=== PATIENT | female | born 1960 | race Caucasian/White ===

== ENCOUNTER → 2019-01-26 | Day surgery (SDC) | payer OTHER ==
[~2019-01-26] MED LIST: CELEXA40 MG PO; FENTANYL CITRATE/PF 100MCG/2 ML INJ ONE; GLUCAGON FOR INJ 1 MG VIAL ONE; HYDROCHLOROTHIA25 MG PO; HYOSCYAMINE 0.125 MG TAB ONE; MIDAZOLAM HCL 2 MG/2 ML VIAL ONE; PRESERVISION T1 EACH PO; PRILOSEC10 M1 PO; PROBIOTIC & AC1 EACH PO; PROPOFOL IV EMULSION 10 MG/ML 50 ML VIAL ONE; ZOCOR20 MG PO
--- OUTSIDE RECORDS SUMMARY | 2019-01-26 09:32 | XMS REPORT ---
Author Author [facility] Address Unknown Phone Unavailable Care Team Providers Care Welfare Eligibility Worker Name Role Phone Unavailable Unavailable Payers Payer Name Policy Type Policy Number Effective Date Expiration Date Problems This patient has no known problems. Allergies, Adverse Reactions, Alerts Allergy Name Allergy Type Status Severity Reaction(s) Onset Date Inactive Date Treating Clinician Comments lisinopril DA Active OR 2018-12-30 00:00:00 Medications This patient has no known medications. Results Test Description Test Time Test Comments Text Results Atomic Results Result Comments - [facility] ABDOMEN [facility] 2018-12-30 15:18:00 Name: EZEQUIEL BARBOUR [facility] : 1960 Age/S: 58 / F [address] [facility] Unit #: [id number] Loc: [place] [address] Phys: Emmy Vasquez NP Acct: [id number] Dis Date: Status: REG ER PHONE #: [phone] Exam Date: 12/30/2018 1435 FAX #: [phone] Reason: Abdominal Pain EXAMS: CPT CODE: [id number] [facility]IRTAME ABDOMEN LTD [id number] EXAM: Ultrasound abdomen, limited; INFORMATION: Abdominal pain; FINDINGS: The liver is enlarged and shows diffusely increased parenchymal echogenicity; no focal lesions. The gallbladder is of normal diameter and wall thickness. It contains numerous small stones. No dilatation of intra or extrahepatic bile ducts. The pancreas is unremarkable. The right kidney is of normal size and shape; no hydronephrosis, no stones and no parenchymal abnormalities. The right kidney measures 13.1 x 5.7 x 5.5 cm. No ascites. Imaged portions of the IVC and abdominal aorta are unremarkable. IMPRESSION: 1. Cholecystolithiasis. 2. Fatty liver. at 1518 Reported and signed by: Neto Landry M.D. CC: Emmy Vasquez NP Technologist: BAIRON DE LA TORRE RT(R),RDMS Trngab Date/Time: 12/30/2018 (1517) [email or web address] Orig Print D/T: S: 12/30/2018 (0146) Probe: PAGE 1 Signed Report CBC W/O DIFF 2018-12-30 14:16:00 WHITE BLOOD CELL (test code=WBC) 7.5 K/mm3 4.5-12.5 RED BLOOD CELL (test code=RBC) 4.62 mill/mm3 3.7-5.2 HEMOGLOBIN (test code=HGB) 13.9 gram/dL 11.5-15.5 HEMATOCRIT (test code=HCT) 42.0 % 36.0-46.0 MEAN CELL VOLUME (test code=MCV) 90.9 fL 80-98 MEAN CELL HGB (test code=MCH) 30.1 picogram 27.0-33.0 MEAN CELL HGB CONCETRATION (test code=MCHC) 33.1 gram/dL 33.0-36.0 RED CELL DISTRIBUTION WIDTH (test code=RDW) 13.0 % 11.6-16.2 PLATELET COUNT (test code=PLT) 243 K/mm3 150-450 MEAN PLATELET VOLUME (test code=MPV) 9.8 fL 6.7-11.0 BASIC METABOLIC [id number] 14:13:00* Test Item Value Reference Range Comments SODIUM (test code=NA) 139 mmol/L 136-145 POTASSIUM (test code=K) 3.1 mmol/L 3.5-5.1 CHLORIDE (test code=CL) 105.0 mmol/L 98-107 CARBON DIOXIDE (test code=CO2) 24.0 mmol/L 21-32 ANION GAP (test code=GAP) 13.1 10-20 GLUCOSE (test code=GLU) 95 mg/dL 74-106 BLOOD UREA NITROGEN (test code=BUN) 24 mg/dL 7-18 GLOMERULAR FILTRATION RATE (test code=GFR) > 60 mL/min >=60 Estimated GFR by using Modified MDRD formula.Chronic kidney disease is defined as either kidney damageor GFR <60 mL/min/1.73 m2 for >3 months. CREATININE (test code=CREAT) 0.80 mg/dL 0.55-1.02 Note change in reference range due to change in reagent. BUN/CREATININE RATIO (test code=BUN/CREA) 29.1 10-20 CALCIUM (test code=CA) 9.3 mg/dL 8.5-10.1 HEPATIC FUNCTION [id number] 14:13:00* Test Item Value Reference Range Comments TOTAL PROTEIN (test code=PROT) 8.1 gram/dL 6.4-8.2 ALBUMIN (test code=ALB) 3.9 g/dL 3.4-5.0 GLOBULIN (test code=GLOB) 4.2 gram/dL 2.7-4.2 ALBUMIN/GLOBULIN RATIO (test code=A/G) 0.9 0.75-1.50 BILIRUBIN TOTAL (test code=BILT) 0.50 mg/dL 0.0-1.0 BILIRUBIN DIRECT (test code=BILD) 0.13 mg/dL 0.0-0.20 SGOT/AST (test code=AST) 40 IUnit/L 15-37 SGPT/ALT (test code=ALT) 57 IUnit/L 12-78 ALKALINE PHOSPHATASE TOTAL (test code=ALKP) 80 IUnit/L 45-117 Note change in reference range due to change in reagent. [id number] 14:13:00* Test Item Value Reference Range Comments LIPASE (test code=LIP) 187 U/L 73.0-393.0 HCG SERUM [id number] 14:13:00* Test Item Value Reference Range Comments HCG SERUM QUAL (test code=HCGQL) NEGATIVE NEGATIVE This HCGQL test is NOT applicable for MALE patients.Check with nurse about probable order error.If Tumor Marker Test needed, nurse should order test "HCGTU"(Test #550.29998) [id number] 14:13:00* Test Item Value Reference Range Comments TROPONIN-I (test code=TROPI) <0.015 ng/mL 0-0.045 BASIC METABOLIC [id number] 14:05:00* Test Item Value Reference Range Comments SODIUM (test code=NA) 139 mmol/L 136-145 POTASSIUM (test code=K) 3.1 mmol/L 3.5-5.1 CHLORIDE (test code=CL) 105.0 mmol/L 98-107 CARBON DIOXIDE (test code=CO2) mmol/L 21-32 ANION GAP (test code=GAP) 10-20 GLUCOSE (test code=GLU) mg/dL 74-106 BLOOD UREA NITROGEN (test code=BUN) mg/dL 7-18 GLOMERULAR FILTRATION RATE (test code=GFR) mL/min >=60 CREATININE (test code=CREAT) mg/dL 0.55-1.02 BUN/CREATININE RATIO (test code=BUN/CREA) 10-20 CALCIUM (test code=CA) mg/dL 8.5-10.1 HEPATIC FUNCTION [id number] 14:05:00* Test Item Value Reference Range Comments TOTAL PROTEIN (test code=PROT) gram/dL 6.4-8.2 ALBUMIN (test code=ALB) g/dL 3.4-5.0 GLOBULIN (test code=GLOB) gram/dL 2.7-4.2 ALBUMIN/GLOBULIN RATIO (test code=A/G) 0.75-1.50 BILIRUBIN TOTAL (test code=BILT) mg/dL 0.0-1.0 BILIRUBIN DIRECT (test code=BILD) mg/dL 0.0-0.20 SGOT/AST (test code=AST) IUnit/L 15-37 SGPT/ALT (test code=ALT) IUnit/L 12-78 ALKALINE PHOSPHATASE TOTAL (test code=ALKP) IUnit/L 45-117 [id number] 14:05:00* Test Item Value Reference Range Comments LIPASE (test code=LIP) U/L 73.0-393.0 HCG SERUM [id number] 14:05:00* Test Item Value Reference Range Comments HCG SERUM QUAL (test code=HCGQL) NEGATIVE NEGATIVE This HCGQL test is NOT applicable for MALE patients.Check with nurse about probable order error.If Tumor Marker Test needed, nurse should order test "HCGTU"(Test #550.83485) [id number] 14:05:00* Test Item Value Reference Range Comments TROPONIN-I (test code=TROPI) ng/mL 0-0.045 BASIC METABOLIC [id number] 14:03:00* Test Item Value Reference Range Comments SODIUM (test code=NA) mmol/L 136-145 POTASSIUM (test code=K) mmol/L 3.5-5.1 CHLORIDE (test code=CL) mmol/L 98-107 CARBON DIOXIDE (test code=CO2) mmol/L 21-32 ANION GAP (test code=GAP) 10-20 GLUCOSE (test code=GLU) mg/dL 74-106 BLOOD UREA NITROGEN (test code=BUN) mg/dL 7-18 GLOMERULAR FILTRATION RATE (test code=GFR) mL/min >=60 CREATININE (test code=CREAT) mg/dL 0.55-1.02 BUN/CREATININE RATIO (test code=BUN/CREA) 10-20 CALCIUM (test code=CA) mg/dL 8.5-10.1 HEPATIC FUNCTION [id number] 14:03:00* Test Item Value Reference Range Comments TOTAL PROTEIN (test code=PROT) gram/dL 6.4-8.2 ALBUMIN (test code=ALB) g/dL 3.4-5.0 GLOBULIN (test code=GLOB) gram/dL 2.7-4.2 ALBUMIN/GLOBULIN RATIO (test code=A/G) 0.75-1.50 BILIRUBIN TOTAL (test code=BILT) mg/dL 0.0-1.0 BILIRUBIN DIRECT (test code=BILD) mg/dL 0.0-0.20 SGOT/AST (test code=AST) IUnit/L 15-37 SGPT/ALT (test code=ALT) IUnit/L 12-78 ALKALINE PHOSPHATASE TOTAL (test code=ALKP) IUnit/L 45-117 [id number] 14:03:00* Test Item Value Reference Range Comments LIPASE (test code=LIP) U/L 73.0-393.0 HCG SERUM [id number] 14:03:00* Test Item Value Reference Range Comments HCG SERUM QUAL (test code=HCGQL) NEGATIVE NEGATIVE This HCGQL test is NOT applicable for MALE patients.Check with nurse about probable order error.If Tumor Marker Test needed, nurse should order test "HCGTU"(Test #550.48936) [id number] 14:03:00* Test Item Value Reference Range Comments TROPONIN-I (test code=TROPI) ng/mL 0-0.045
--- OUTSIDE RECORDS SUMMARY | 2019-01-26 09:32 | XMS REPORT | Encounter Summary ---
Author Organization Unknown Address [address] [place] [address] Phone [phone] Care Team Providers Care Plaster Applicator Name Role Phone Dr. Camron Calvillo 3 [phone] [facility] 107 [phone] Hans Eaton MD 124 [phone] Reason for Visit lab follow-up Instructions 1. Body mass index 30+ - obesity body mass index: care instructions learning about healthy weight 2. Morbid obesity learning about healthy weight 3. Cholelithiasis without obstruction general surgery referral 4. Hypercalcemia 5. Essential hypertension 6. Abdominal pain Discussion Note will refer to gen surgeon olman/re check ca next ov/rtc 1 month bp f/u Plan of Care Patient Instructions attend er if>pain and surgical consult not forthcoming Reminders Provider Appointments Return to Office on or around 01/29/2019 Tao Pettit MD Lab None recorded. Referral General Surgery Referral 12/29/2018 Procedures None recorded. Surgeries None recorded. Imaging None recorded. Medications Name Start Date acetaminophen 300 mg-codeine 60 mg tablet Take 0.5 tablets as needed by oral route. calcipotriene 0.005 % topical cream Apply 1 application every day by topical route. citalopram 40 mg tablet TAKE 1 TABLET DAILY diclofenac 1 % topical gel Apply 1 g every day by topical route as needed. Flector 1.3 % transdermal 12 hour patch Apply 1 patch every day by transderm. route as needed. hydrochlorothiazide 25 mg tablet TAKE 1 TABLET DAILY potassium chloride ER 20 mEq tablet,extended release(part/cryst) Take 1 tablet every day by oral route. PreserVision AREDS QD simvastatin 10 mg tablet TAKE 1 TABLET DAILY Medications Administered None recorded. Vitals Height Weight BMI Blood Pressure 5 ft 4 in 212 lbs 36.4 kg/m2 (1) 142/92 mm[Hg] (2) 141/96 mm[Hg] Lab Results Date Name Specimen Result Interpretation Description Value Range Status Address 12/26/2018 CBC W/ Auto Diff Wbc 6.93 x10*3/L 3.98-10.04 x10*3/L Final [facility] [address] [facility] Rbc 4.53 10*12/L 3.93-5.22 10*12/L Final [facility] [address] [facility] Hemoglobin 13.70 g/dL 11.20-15.70 g/dL Final [facility]: [address] [facility] Hematocrit 41.9 % 34.1-44.9 % Final [facility]: [address] [facility] Mcv 92.5 fL 80.0-100.0 fL Final [facility]: [address] [facility] Mch 30.2 pg 25.6-32.2 pg Final [facility]: [address] [facility] Mchc 32.7 g/dL 32.2-35.5 g/dL Final [facility]: [address] [facility] RDW-SD 44.9 fL 36.4-46.3 fL Final [facility]: [address] [facility] Platelet Count 238.0 k/uL 182.0-369.0 k/uL Final [facility]: [address] [facility] Mpv 11.1 fL 7.5-11.5 fL Final [facility]: [address] [facility] Neut% 42.8 % 34.0-71.1 % Final [facility] Laboratory: [address] [place] [address] Lymph% 47.8 % 19.3-51.7 % Final [facility]: [address] [facility] Mon% 6.2 % 4.7-12.5 % Final [facility]: [address] [facility] Eos% 2.6 % 0.7-5.8 % Final [facility]: [address] [facility] Baso% 0.6 % 0.1-1.2 % Final [facility] Laboratory: [address] [place] [address] Neut# 3.0 x10*3/L 1.6-6.1 x10*3/L Final [facility] Laboratory: [address] [place] [address] [place] Lymph# 3.3 x10*3/L 1.2-3.7 x10*3/L Final [facility] Laboratory: [address] [facility] [place] Mon# 0.4 x10*3/L 0.2-0.9 x10*3/L Final [facility] Laboratory: [address] [place] [address], [place] Eos# 0.18 x10*3/L 0.04-0.36 x10*3/L Final [facility] Laboratory: [address] [place] [address], [place] Baso# 0.04 x10*3/L 0.01-0.08 x10*3/L Final [facility] Laboratory: [address] 12/26/2018 PTH (Parathyroid Hormone), Intact, Serum or Plasma Normal Parathyroid Hormone, Intact 56 pg/mL 14-64 pg/mL Final [facility] Laboratory: [address] Allergies Code Code System Name Reaction Severity Status Onset 85141 RxNorm Lisinopril Photosensitivity Active Problems Name Status Onset Date Source Hyperlipidemia Active 08/18/2018 Depressive Disorder Active 08/18/2018 Hypertensive Disorder Active 08/18/2018 Psoriasis Active 08/18/2018 Procedures Date Name Performed by 05/03/2017 Lumbar Spinal Fusion Information not available 05/03/1997 Tubal Ligation Information not available 05/03/1986 Repair of Flexor Tendon of Hand Information not available Colonoscopy with Biopsy Information not available Surgical Procedure on Cervical Spine Information not available 12/26/2018 US, Abdomen, Complete [facility] [address] [place] [address] (Work Place) Vaccine List None recorded. Social History Tobacco Smoking Status Former Smoker (1/2 PPD) Past Encounters 12/29/2018 Body Mass Index 30+ - Obesity; Morbid Obesity; Cholelithiasis without Obstruction; Hypercalcemia; Essential Hypertension; Abdominal Pain Tao Pettit MD: [address] [place] [address], Ph. 12/26/2018 Hypertensive Disorder; Body Mass Index 30+ - Obesity; Abdominal Pain; Gastroesophageal Reflux Disease; Hypercalcemia; Essential Hypertension; Depressive Disorder; Chronic Low Back Pain Tao Pettit MD: [address] [place] [address], Ph. History of Present Illness Note:f/u epigastric abdominal pain,persistant with nausea without vomiting<div> us abdo -cholelithiasis/fatty infiltration or hepatocellular disease</div> <div> lab-normal cbc/parahormone</div><div>
</div> Review of Systems:ROS as noted in the HPI Review of Systems None recorded. Physical Exam Brief Abdominal Pain Exam Reported By: Patient Abdomen: Inspection and Palpation: ; epigastric tenderness/murphys positive
--- OUTSIDE RECORDS SUMMARY | 2019-01-26 09:32 | XMS REPORT | Encounter Summary ---
Author Organization Unknown Address [address] [place] [address] Phone [phone] Care Team Providers Care Agronomy Professor Name Role Phone Dr. Camron Calvillo 3 [phone] [facility] 107 [phone] Hans Eaton MD 124 [phone] Reason for Visit Hypertensive disorder; other - see typed reason Instructions 1. Hypertensive disorder 2. Body mass index 30+ - obesity body mass index: care instructions learning about healthy weight 3. Abdominal pain CBC w/ auto diff US, abdomen, complete 4. Gastroesophageal reflux disease 5. Hypercalcemia PTH (parathyroid hormone), intact, serum or plasma 6. Essential hypertension 7. Depressive disorder 8. Chronic low back pain Discussion Note await us abdo may need gi consult Plan of Care Patient Instructions continue all meds /> dose and take omeprazole daily Reminders Provider Appointments None recorded. Lab CBC W/ Auto Diff 12/26/2018 [facility] PTH (Parathyroid Hormone), Intact, Serum or Plasma 12/26/2018 [facility] Referral None recorded. Procedures None recorded. Surgeries None recorded. Imaging US, Abdomen, Complete 12/26/2018 Medications Name Start Date acetaminophen 300 mg-codeine [...] 4 in 212 lbs 36.4 kg/m2 (1) 140/92 mm[Hg] (2) 132/87 mm[Hg] Lab Results None recorded. Allergies Code Code System Name Reaction Severity Status Onset 05737 RxNorm Lisinopril Photosensitivity Active Problems Name Status [...] Information not available 12/26/2018 US, Abdomen, Complete Information not available Vaccine List None recorded. Social History Tobacco Smoking Status Former Smoker (1/2 PPD) Past Encounters 12/26/2018 Hypertensive Disorder; Body Mass Index 30+ - Obesity; Abdominal Pain; Gastroesophageal Reflux Disease; Hypercalcemia; Essential Hypertension; Depressive Disorder; Chronic Low Back Pain Tao Pettit MD: [address] [place] [address], Ph. History of Present Illness Note:f/u htn,compliant with meds/hypercalcemia -repeat ca 10.2<div>3 week h/o stomach queasiness/epigastric pain relieved otc omeprazole /food</div><div>long h/o gerd,normal colonoscopy 8 yrs ago -advised 10 yr f/u</div><div>trial spinal stimulator scheduled next week</div> Review of Systems:ROS as noted in the HPI Review of Systems None recorded. Physical Exam Brief Abdominal Pain Exam Reported By: Patient Constitutional: General Appearance: well-developed, well-nourished, healthy-appearing, alert, oriented, NAD, mucous membranes moist Cardiovascular: Heart Auscultation: S1 present, S2 present, no murmurs, no click Lungs: Lungs: clear to auscultation bilaterally, no wheezing, no crackles Abdomen: Inspection and Palpation: soft, bowel sounds 4 quadrants, no tenderness, non-distended; epigastric tenderness +/murphys neg
--- OUTSIDE RECORDS SUMMARY | 2019-01-26 09:32 | XMS REPORT | Encounter Summary ---
Author Organization Unknown Address [address] [place] [address] Phone [phone] Care Team Providers Care Sleep Lab Technologist Name Role Phone Dr. Camron Calvillo 3 [phone] [facility] 107 [phone] Hans Eaton MD 124 [phone] Reason for Visit other - see typed reason Instructions 1. Arthritis of right sacroiliac joint pain management referral 2. Body mass index 30+ - obesity body mass index: care instructions learning about healthy weight 3. Screening for disorder hepatitis C virus RNA, quant, PCR, serum or plasma 4. Screening for malignant neoplasm of cervix gynecology referral Discussion Note: None recorded. Plan of Care Reminders Provider Appointments Est Patient 11/17/2018 1:00PM Tao Pettit MD Lab Hepatitis C Virus RNA, Quant, PCR, Serum or Plasma 09/05/[address] [facility] Laboratory Referral Gynecology Referral 09/05/2018 Andrew Alfaro MD Pain Management Referral 09/05/2018 Hans Eaton MD Procedures None recorded. Surgeries None recorded. Imaging None recorded. Medications Name Start Date acetaminophen 300 mg-codeine 60 mg tablet TID PRN calcipotriene 0.005 % topical cream QD citalopram 40 mg tablet Take 1 tablet every day by oral route. diclofenac 1 % topical gel PRN Flector 1.3 % transdermal 12 hour patch PRN hydrochlorothiazide 25 mg tablet Take 1 tablet every day by oral route. PreserVision AREDS QD simvastatin 10 mg tablet Take 1 tablet every day by oral route. Medications Administered None recorded. Vitals Height Weight BMI Blood Pressure 5 ft 4 in 211 lbs 36.2 kg/m2 (1) 150/90 mm[Hg] (2) 138/82 mm[Hg] Lab Results Date Name Specimen Result Interpretation Description Value Range Status Address 08/18/2018 CBC W/ Auto Diff Wbc 7.10 x10*3/L 3.98-10.04 x10*3/L Final [facility] Laboratory: [address] [place] Rbc 4.77 10*12/L 3.93-5.22 10*12/L Final [facility]: [address] [place] Hemoglobin 14.60 g/dL 11.20-15.70 g/dL Final [facility]: [address] [place] Hematocrit 44.5 % 34.1-44.9 % Final [facility]: [address] [place] Mcv 93.3 fL 80.0-100.[address] [facility]: [address] [facility] Mch 30.6 pg 25.6-32.[address] [facility]: [address] [place] Mchc 32.8 g/dL 32.2-35.5 g/dL Final [facility]: [address] [place] RDW-SD 45.5 fL 36.4-46.[address] [facility]: [address] [facility] Platelet Count 273.0 k/uL 182.0-369.0 k/uL Final [facility]: [address] [facility] Mpv 10.8 fL 7.5-11.[address] [facility]: [address] [place] Neut% 43.4 % 34.0-71.1 % Final [facility]: [address] [place] Lymph% 49.0 % 19.3-51.7 % Final [facility]: [address] [facility] Low Mon% 4.4 % 4.7-12.5 % Final [facility]: [address] [facility] Eos% 2.5 % 0.7-5.8 % Final [facility]: [address] [facility] Baso% 0.7 % 0.1-1.2 % Final [facility]: [address] [place] Neut# 3.1 x10*3/L 1.6-6.1 x10*3/L Final [facility]: [address] [facility] Lymph# 3.5 x10*3/L 1.2-3.7 x10*3/L Final [facility]: [address] [place] Mon# 0.3 x10*3/L 0.2-0.9 x10*3/L Final [facility]: [address] [place] Eos# 0.18 x10*3/L 0.04-0.36 x10*3/L Final [facility]: [address] [place] Baso# 0.05 x10*3/L 0.01-0.08 x10*3/L Final [facility]: [address] [facility] 08/18/2018 CMP, Serum or Plasma Alt 23 U/L 0-55 U/L Final [facility]: [address] Ast 21 U/L 5-34 U/L Final [facility] Laboratory: [address] Bun 16.4 mg/dL 9.8-20.1 mg/dL Final [facility]: [address] Alk Phos 82 unit/L 40-150 unit/L Final [facility]: [address] Glucose 87 mg/dL 70-99 mg/dL Final [facility]: [address] Albumin 4.5 g/dL 3.5-5.0 g/dL Final [facility]: [address] Creatinine 0.84 mg/dL 0.57-1.11 mg/dL Final [facility]: [address] eGFR Non- >60 mL/min/1.73m2 Final [facility]: [address] Total Bilirubin 0.3 mg/dL 0.2-1.2 mg/dL Final [facility]: [address] eGFR - >60 mL/min/1.73m2 Final [facility]: [address] Sodium 141 mEq/L 136-145 mEq/L Final [facility]: [address] Potassium 4.0 mEq/L 3.5-5.1 mEq/L Final [facility]: [address] Chloride 102 mmol/L 98-107 mmol/L Final [facility]: [address] Total Protein 7.8 g/dL 6.4-8.3 g/dL Final [facility]: [address] High Calcium 10.7 mg/dL 8.6-10.4 mg/dL Final [facility]: [address] Co2 26.5 mmol/L 22.0-29.0 mmol/L Final [facility]: [address] Anion Gap [address] [facility]: [address] [place], [place] 08/18/2018 Lipid Panel, Serum Hdl 51 mg/dL 40-60 mg/dL Final [facility] Laboratory: [address] Triglyceride 134 mg/dL 0-149 mg/dL Final [facility]: [address] VLDL Calc. 27 mg/dL Final [facility]: [address] cholesterol/HDL Ratio 3.9 mg/dL Final [facility]: [address] non-HDL Cholesterol Calc. 146 mg/dL 0-160 mg/dL Final [facility]: [address] Cholesterol 197 mg/dL 0-199 mg/dL Final [facility]: [address] LDL Calc. 119 mg/dL 0-130 mg/dL Final [facility] Laboratory: [address] [place] [address], [place] 08/18/2018 Vitamin D, 25-Hydroxy, Total, Serum Vitamin D 25OH 35.8 NG/mL 30.0-96.0 NG/mL Final [facility] Laboratory: [address] Allergies Code Code System Name Reaction Severity Status Onset 17535 RxNorm Lisinopril Photosensitivity Active Problems Name Status Onset Date Source Hyperlipidemia Active 08/18/2018 Depressive Disorder Active 08/18/2018 Hypertensive Disorder Active 08/18/2018 Psoriasis Active 08/18/2018 Procedures Date Name Performed by 05/03/2017 Lumbar Spinal Fusion Information not available 05/03/2011 Colonoscopy with Biopsy Information not available 05/03/1997 Tubal Ligation Information not available 05/03/1986 Repair of Flexor Tendon of Hand Information not available Surgical Procedure on Cervical Spine Information not available Vaccine List None recorded. Social History Smoking Status Former Smoker (1/2 PPD) Past Encounters 09/05/2018 Arthritis of Right Sacroiliac Joint; Body Mass Index 30+ - Obesity; Screening for Disorder; Screening for Malignant Neoplasm of Cervix Camron Esperanza Arias MD: [address] [place] [address], Ph. 08/18/2018 Body Mass Index 30+ - Obesity; Depressive Disorder; Hyperlipidemia; Hypertensive Disorder; Alcohol Consumption Screening; Immunization Refused; Vitamin D Deficiency Tao Pettit MD: [address] [place] [address], Ph. History of Present Illness Note:Complaining of chronic pain in the R sacroiliac joint since 20 years ago. S/p surgery (fusion) x2. Pt used to see a production painter until 1 month ago in [place]. However, she moved to [place] and needs a new referral. She would like to see the same specialist. Pain is constant, intensity: 6-10. Located in the R side of the lumbo-sacral area. No radiation. Sharp type. Denies numbness, tingling or weakness in the R leg. Review of Systems Comprehensive General Adult ROS Reported By: Patient Cardiovascular: Cardiovascular: no chest pain Respiratory: Respiratory: no cough, no wheezing, no shortness of breath Gastrointestinal: Gastrointestinal: no abdominal pain Musculoskeletal: Musculoskeletal: arthralgias/joint pain, back pain Neurologic: Neurologic: no loss of consciousness, no headaches Psychiatric: Psych: no depression, no alcohol abuse, no anxiety, no suicidal thoughts Physical Exam General Adult Exam (male) Reported By: Patient Constitutional: General Appearance: healthy-appearing, obese. Level of Distress: NAD Eyes: Lids and Conjunctivae: non-injected, no discharge ENMT: Ears: TMs clear. Nose: no sinus tenderness. Lips, Teeth, and Gums: no mouth or lip ulcers. Oropharynx: moist mucous membranes Neck: Neck: supple, trachea midline Lungs: Auscultation: breath sounds normal Cardiovascular: Heart Auscultation: RRR, normal S1, normal S2, no murmurs Neurologic: Gait and Station: ; antalgic gait. Sensation: grossly intact. Reflexes: DTRs 2+ bilaterally throughout Skin: Inspection and palpation: no rash, no lesions Back: Thoracolumbar Appearance: ; tenderness with palpation at the level of the R sacroiliac joint. Positive straight leg raising test in the R side. Decreased ROM because of the pain
--- OUTSIDE RECORDS SUMMARY | 2019-01-26 09:32 | XMS REPORT | Encounter Summary ---
Author Organization Unknown Address [address] [place] [address] Phone [phone] Care Team Providers Care Business Development Consultant Name Role Phone Dr. Camron Calvillo 3 [phone] [facility] 107 [phone] Hans Eaton MD 124 [phone] Reason for Visit lab only visit Instructions 1. Hypercalcemia calcium, serum or plasma Discussion Note: None recorded. Patient educational handouts: No information available. Plan of Care Reminders Provider Appointments Est Patient 12/12/2018 1:00PM Tao Ptetit MD Lab Calcium, Serum or Plasma 11/21/2018 [facility] Laboratory Referral None recorded. Procedures None [...] TABLET DAILY Medications Administered None recorded. Vitals None recorded. Lab Results Date Name Specimen Result Interpretation Description Value Range Status Address 11/14/2018 CMP, Serum or Plasma Alt 41 U/L 0-55 U/L Final [facility] Laboratory: [address] Ast 23 U/L 5-34 U/L Final [facility] Laboratory: [address] [place] [address], [place] Bun 27.8 mg/dL 9.8-25.0 mg/dL Final [facility] Laboratory: [address] Alk Phos 78 unit/L 40-150 unit/L Final [facility] Laboratory: [address] Glucose 90 mg/dL 70-99 mg/dL Final [facility] [facility] 4.[facility] g/dL 3.4-5.1 g/dL Final [facility] Laboratory: [address] Creatinine 0.86 mg/dL 0.57-1.11 mg/dL Final [facility] Laboratory: [address] eGFR Non- >60 mL/min/1.73m2 Final [facility] Laboratory: [address] Total Bilirubin 0.5 mg/dL 0.2-1.2 mg/dL Final [facility] Laboratory: [address] eGFR - >60 mL/min/1.73m2 Final [facility]: [address] Sodium 140 mEq/L 135-145 mEq/L Final [facility] Laboratory: [address] Potassium 3.7 mEq/L 3.5-5.1 mEq/L Final [facility] Laboratory: [address] Chloride 106 mmol/L 98-110 mmol/L Final [facility] Laboratory: [address] Total Protein 7.8 g/dL 6.1-8.2 g/dL Final [facility] Laboratory: [address] High Calcium 10.7 mg/dL 8.6-10.4 mg/dL Final [facility] Laboratory: [address] Co2 24.8 mmol/L 20.0-32.0 mmol/L Final [facility] Laboratory: [address] Anion Gap 9 calc Final [facility] [address] [facility] Lipid Panel, Serum Low Hdl 46 mg/dL Final [facility] Laboratory: [address] High Triglyceride 224 mg/dL 0-150 mg/dL Final [facility] Laboratory: [address] VLDL (Calculated) 45 mg/dL Final [facility] Laboratory: [address] cholesterol/HDL Ratio 4.6 mg/dL Final [facility] Laboratory: [address] High non-HDL Cholesterol (Calculated) 165 mg/dL 0-160 mg/dL Final [facility] Laboratory: [address] High Cholesterol 211 mg/dL 0-200 mg/dL Final [facility] Laboratory: [address] LDL (Calculated) 120 mg/dL 0-130 mg/dL Final [facility]: [address] Allergies Code Code System Name Reaction Severity Status Onset 09795 RxNorm Lisinopril Photosensitivity Active Problems Name Status [...] Status Former Smoker (1/2 PPD) Past Encounters 11/21/2018 Hypercalcemia Tao Pettit MD: [address] [place] [address], Ph. 11/14/2018 Body Mass Index 30+ - Obesity; Obesity; Depressive Disorder; Hypertensive Disorder; Hyperlipidemia Tao Pettit MD: [address] [place] [address], Ph. History of Present Illness None recorded. Review of Systems None recorded. Physical Exam None recorded.
--- OUTSIDE RECORDS SUMMARY | 2019-01-26 09:32 | XMS REPORT | Encounter Summary ---
Author Organization Unknown Address [address] [place] [address] Phone [phone] Care Team Providers Care Associate Professor Physician Name Role Phone Dr. Camron Calvillo 3 [phone] [facility] 107 [phone] Hans Eaton MD 124 [phone] Reason for Visit Hypertensive disorder; Hyperlipidemia; Depressive disorder Instructions 1. Body mass index 30+ - obesity body mass index: care instructions learning about healthy weight 2. Obesity 3. Depressive disorder citalopram 40 mg tablet 4. Hypertensive disorder hydrochlorothiazide 25 mg tablet potassium chloride ER 20 mEq tablet,extended release(part/cryst) 5. Hyperlipidemia simvastatin 10 mg tablet high cholesterol: care instructions lipid panel, serum CMP, serum or plasma Discussion Note await lab h/o >ca/will > meds if >bp withself monitoring next ov Plan of Care Patient Instructions continue meds,monitor bp with record Reminders Provider Appointments Return to Office on or around 12/15/2018 Tao Pettit MD Lab Lipid Panel, Serum 11/14/2018 [facility] Laboratory CMP, Serum or Plasma 11/14/2018 [facility] Laboratory Referral None recorded. Procedures None recorded. [...] BMI Blood Pressure 5 ft 4 in 210.6 lbs 36.1 kg/m2 (1) 148/92 mm[Hg] (2) 138/88 mm[Hg] Lab Results None recorded. Allergies Code Code System Name Reaction Severity Status Onset 70313 RxNorm Lisinopril Photosensitivity Active Problems Name Status [...] Status Former Smoker (1/2 PPD) Past Encounters 11/14/2018 Body Mass Index 30+ - Obesity; Obesity; Depressive Disorder; Hypertensive Disorder; Hyperlipidemia Tao Pettit MD: [address] [place] [address], Ph. History of Present Illness Note:f/u chronic conditions,compliant with meds not exercise due to chronic back pain -meds as per pain management<div>initially > bp at to days ov-occ htn with self monitoring</div><div>no feelins of depression /suicidal /homicidal thoughts</div> Review of Systems:ROS as noted in the HPI Review of Systems None recorded. Physical Exam Cardiology Exam Reported By: Patient Constitutional: General Appearance: well-developed, appears stated age, obese. Level of Distress: comfortable Psychiatric: Mental Status: alert, normal affect. Orientation: oriented to time, place, and person. Insight: good judgment Eyes: Lids and Conjunctivae: non-injected, anicteric, no discharge, no pallor, no arcus senilis, no xanthelasma. Pupils: PERRLA Neck: Neck: supple, trachea midline, no masses, FROM. Carotid Arteries: bilateral normal upstroke, no bruits, no thrills. Cervical Lymph Nodes: non tender, not enlarged. Thyroid: not enlarged, non tender, no nodules Lungs: Respiratory Effort: unlabored. Chest Exam: normal curvature, no thoracic deformity, no chest wall tenderness. Percussion: resonant. Auscultation: clear, no wheezing, no rales, no rhonchi Cardiovascular: Precordial Exam: non displaced focal PMI, no heaves, no precordial thrills. Rate And Rhythm: regular. Heart Sounds: normal S1, physiologically split S2, no rub, no gallop, no click. Systolic Murmur: not heard. Diastolic Murmur: not heard. Extremities: no cyanosis, no edema, no peripheral signs of emboli Skin: Inspection and Palpation: warm and dry. Nails: no clubbing
[2019-01-26 14:35] VITALS: BP 120/73
[2019-01-26 15:36] LABS: C DIFFICILE TOXIN A&B AMP PROB NEGATIVE (NEGATIVE); WBC,FECAL (FECAL LACTOFERRIN) NEGATIVE (NEGATIVE)
--- NOTE | 2019-01-26 20:32 | Operative Report ---
DATE OF PROCEDURE: 01/26/2019 SURGEON: Chuck Bowers MD PROCEDURES: EGD with biopsies and colonoscopy with polypectomy and biopsies. INDICATIONS FOR EGD: Upper abdominal pain, heartburn, nausea. INDICATIONS FOR COLONOSCOPY: Colorectal cancer screening, history of diarrhea. MEDICATIONS: The patient was done under MAC, please see anesthesiologist's note. PROCEDURE IN DETAIL: With the patient in left lateral decubitus position, a flexible fiberoptic Olympus gastroscope was introduced into the esophagus under direct visualization without any difficulty. There was some patchy erythema noted in distal esophagus. Minute tongue of velvety red mucosa was noted to extend proximally from the GE junction and biopsies were obtained to rule out Souza. The scope was then advanced with ease into the stomach, mucosa overlying the antrum and the body revealed some patchy erythema and [id number] edema, and biopsies were obtained and sent to stain for H. pylori. Pylorus was of normal contour and shape, it was intubated with ease and the scope was advanced all the way to the second portion of the duodenum. Biopsies were obtained from the second portion and the duodenal bulb to rule out sprue. The scope was then withdrawn back into the stomach and retroflexed and mucosa overlying the fundus and the cardia appeared to be within normal limits. The scope was then straightened out, it was subsequently withdrawn, and the patient tolerated the procedure well. IMPRESSION: 1. Mild distal esophagitis. 2. Rule out Souza esophagus. 3. Gastritis, biopsied, biopsies sent to stain for Helicobacter pylori. 4. Rule out sprue. PLAN: Follow up histology. Increase omeprazole to 40 mg 1 p.o. before meals b.i.d. The patient was then turned around and after adequate lubrication of the anal canal, a flexible fiberoptic Olympus colonoscope was inserted into the rectum with ease and advanced all the way to the cecum. Mucosa overlying the cecum appeared to be within normal limits. A minute polyp was removed per the cold biopsy forceps from the proximal ascending colon. The rest of the ascending and transverse grossly appeared to be within normal limits. Mild patchy and inflammatory changes were noted in the left colon and the rectum, and random biopsies were obtained. Five polyps were removed per hot biopsy forceps from the rectum. The scope was then retroflexed into the distal rectum and small internal hemorrhoids were noted, none of which was actively bleeding. The scope was then straightened out and it was subsequently withdrawn after securing an adequate stool specimen that was sent for the appropriate stool studies. The patient tolerated the procedure well. IMPRESSION: 1. Minute polyp, proximal ascending colon removed per cold biopsy forceps. 2. Mild patchy left-sided colitis. 3. Rectal polyps x5, hot biopsied. 4. Proctitis, mild, biopsies obtained. 5. Internal hemorrhoids, none actively bleeding. PLAN: Follow up histology. Follow up stool studies. Initiate Bentyl to 20 mg 1 p.o. t.i.d. and Visbiome 1 p.o. b.i.d. Chuck Bowers MD [facility] [place] /[id number] cc: Camron Arias MD
== END | disposition home or self-care (01) ==
LOC: OR 09:29
PROVIDERS: ATTEND Internal Medicine Gastroenterology
DX: K29.50 Unspecified chronic gastritis without bleeding (principal); D12.2 Benign neoplasm of ascending colon; K62.1 Rectal polyp; K51.50 Left sided colitis without complications; K21.0 Gastro-esophageal reflux disease with esophagitis; K22.8 Other specified diseases of esophagus; K62.89 Other specified diseases of anus and rectum; K64.8 Other hemorrhoids; I10 Essential (primary) hypertension; Z88.8 Allergy status to other drugs, medicaments and biological substances; Z01.810 Encounter for preprocedural cardiovascular examination; Z80.0 Family history of malignant neoplasm of digestive organs
CPT/HCPCS: 43239; 45380; 45384; 83630; 83993; 87045; 87177; 87328; 87493; 93005; J1610; J2250; J2704; J3010; 45378

== ENCOUNTER 2019-09-11 20:02 | Emergency (ER) | payer OTHER ==
[~2019-09-11] VITALS: Ht 157.5 cm; Wt 90.7 kg
[~2019-09-11 20:02] MED LIST changes: -FENTANYL CITRATE/PF 100MCG/2 ML INJ ONE; -GLUCAGON FOR INJ 1 MG VIAL ONE; -HYOSCYAMINE 0.125 MG TAB ONE; -MIDAZOLAM HCL 2 MG/2 ML VIAL ONE; -PROPOFOL IV EMULSION 10 MG/ML 50 ML VIAL ONE
--- OUTSIDE RECORDS SUMMARY | 2019-09-11 20:06 | XMS REPORT | Encounter Summary ---
Author Organization Unknown Address [address] [place] [address] Phone [phone] Care Team Providers Care Final Assembler Name Role Phone Dr. Camron Calvillo 3 [phone] [facility] 107 [phone] Hans Eaton MD 124 [phone] Reason for Visit hyperlipidemia; hypertension; depression Instructions 1. Body mass index 30+ - obesity learning about healthy weight 2. Depressive disorder citalopram 40 mg tablet citalopram 40 mg tablet 3. Hyperlipidemia Zocor 10 mg tablet lipid panel, serum CMP, serum or plasma CBC w/ auto diff Zocor 10 mg tablet 4. Hypertensive disorder hydrochlorothiazide 25 mg tablet hydrochlorothiazide 25 mg tablet 5. Alcohol consumption screening learning about alcohol use disorder 6. Immunization refused 7. Vitamin D deficiency vitamin D, 25-hydroxy, total, serum Discussion Note: None recorded. Plan of Care Patient Instructions continue meds/exercise/<wgt Reminders Provider Appointments None recorded. Lab Lipid Panel, Serum 08/18/2018 [facility] - Laboratory CMP, Serum or Plasma 08/18/2018 [facility] Med ical - Laboratory CBC W/ Auto Diff 08/18/2018 [facility] - Laboratory Vitamin D, 25-Hydroxy, Total, Serum 08/18/2018 [facility] - Laboratory Referral None recorded. Procedures None recorded. Surgeries None recorded. Imaging None recorded. Medications Name Start Date acetaminophen 300 mg-codeine 30 mg tablet acetaminophen 300 mg-codeine 60 mg table t Take 0.5 tablets as needed by oral route. calcipotriene 0.005 % topical cream Apply 1 application every day by topical route. cephalexin 500 mg capsule citalopram 40 mg tablet TAKE 1 TABLET DAILY diclofenac 1 % topical gel Apply 1 g every day by topical route as needed. dicyclomine 20 mg tablet Flector 1.3 % transdermal 12 hour patch Apply 1 patch every day by transderm. route as needed. hydrochlorothiazide 25 mg tablet TAKE 1 TABLET DAILY hydrocodone 5 mg-acetaminophen 325 mg tablet omeprazole 40 mg capsule,delayed release potassium chloride ER 20 mEq tablet,exte nded release(part/cryst) Take 1 tablet every day by oral route. PreserVision AREDS QD simvastatin 10 mg tablet TAKE 1 TABLET DAILY Medications Administered None recorded. Vitals Height Weight BMI Blood Pressure 5 ft 4 in 210 lbs 36 kg/m2 130/70 mm[Hg] Results Lab Results Date Name Specimen Result Interpretation Description Value Range Status Address 12/26/2018 CBC W/ Auto Diff Wbc 6.93 x10*3/L 3.9 8-10.04 x10*3/L Final [facility] - Laboratory: [address] Rbc 4.53 10*12/L 3.93-5.22 10*12/L Final [facility] - Laboratory: [address] Hemoglobin 13.70 g/dL 11.20-15.70 g/ dL Final [facility] - Laboratory: [address] Hematocrit 41.9 % 34.1-44.9 % Final [facility] - Laboratory: [address] Mcv 92.5 fL 80.0-100.0 fL Final Vi [facility] Medical - Laboratory: [address] Mch 30.2 pg 25.6-32.2 pg Final [facility] Medical - Laboratory: [address] Mchc 32.7 g/dL 32.2-35.5 g/dL Final [facility] Medical - Laboratory: [address] RDW-SD 44.9 fL 36.4-46.3 fL Final V [facility] Medical - Laboratory: [address] Platelet Count 238.0 k/uL 182.0-369. 0 k/uL Final [facility] Medical - Laboratory: [address] Mpv 11.1 fL 7.5-11.5 fL Final [facility] Medical - Laboratory: [address] Neut% 42.8 % 34.0-71.1 % Final [facility] Medical - Laboratory: [address] Lymph% 47.8 % 19.3-51.7 % Final [facility] Medical - Laboratory: [address], [place] Mon% 6.2 % 4.7-12.5 % Final [facility] Medical - Laboratory: [address], [place] Eos% 2.6 % 0.7-5.8 % Final [facility] Medical - Laboratory: [address], [place] Baso% 0.6 % 0.1-1.2 % Final [facility] Medical - Laboratory: [address], [place] Neut# 3.0 x10*3/L 1.6-6.1 x10*3/L Final [facility] Medical - Laboratory: [address], [place] Lymph# 3.3 x10*3/L 1.2-3.7 x10*3/L Final [facility] Medical - Laboratory: [address], [place] Mon# 0.4 x10*3/L 0.2-0.9 x10*3/L F aldersonl [facility] Medical - Laboratory: [address], [place] Eos# 0.18 x10*3/L 0.04-0.36 x10*3/ L Final [facility] Medical - Laboratory: [address], [place] Baso# 0.04 x10*3/L 0.01-0.08 x10*3/ L Final [facility] - Laboratory: [address], [place] 12/26/2018 PTH (Parathyroid Hormone), Intact, Serum or Plasma Normal Parathyroid Hormone, Intact 56 pg/mL 14-64 pg/mL Final [facility] Medical - Laboratory: [address], [place] 11/21/2018 Calcium, Serum or Plasma Calcium 10 .2 mg/dL 8.6-10.4 mg/dL Final [facility] [address] [facility] [facility]/14/2018 CMP, Serum or Plasma Alt 41 U/L 0-55 U /L Final [facility] Medical - Laboratory: [address] Ast 23 U/L 5-34 U/L Final [facility] Medical - Laboratory: [address] [place] [address] High Bun 27.8 mg/dL 9.8-25.0 mg/dL Final [facility] Medical - Laboratory: [address] [facility], [place] Alk Phos 78 unit/L 40-150 unit/L [facility] Medical - Laboratory: [address], [place] Glucose 90 mg/dL 70-99 mg/dL [facility] Medical - Laboratory: [address] [facility] [place] Albumin 4.4 g/dL 3.4-5.1 g/dL [facility] Medical - Laboratory: [address] [facility], [place] Creatinine 0.86 mg/dL 0.57-1.11 mg/d L [facility] Medical - Laboratory: [address] [facility], [place] eGFR Non- >60 mL/mi n/1.73m2 Final [facility] Medical - Laboratory: [address], [place] Total Bilirubin 0.5 mg/dL 0.2-1.2 mg /dL [facility] Medical - Laboratory: [address] [facility], [place] eGFR - >60 mL/min/1 .73m2 [facility] Medical - Laboratory: [address] [facility] [place] Sodium 140 mEq/L 135-145 mEq/L [facility] Medical - Laboratory: [address] [facility] [place] Potassium 3.7 mEq/L 3.5-5.1 mEq/L [facility] Medical - Laboratory: [address], [place] Chloride 106 mmol/L 98-110 mmol/L [facility] Medical - Laboratory: [address], [place] Total Protein 7.8 g/dL 6.1-8.2 g/dL [facility] Medical - Laboratory: [address], [place] High Calcium 10.7 mg/dL 8.6-10.4 mg/dL [facility] Medical - Laboratory: [address], [place] Co2 24.8 mmol/L 20.0-32.0 mmol/L [facility] Medical - Laboratory: [address], [place] Anion Gap 9 calc [facility] Medical - Laboratory: [address] [place], [place] 11/14/2018 Lipid Panel, Serum Low Hdl 46 mg/dL [facility] Medical - Laboratory: [address] [place] High Triglyceride 224 mg/dL 0-150 mg/dL F [facility] Medical - Laboratory: [address] [place] VLDL (Calculated) 45 mg/dL [facility] Medical - Laboratory: [address] [place] cholesterol/HDL Ratio 4.6 mg/dL Final [facility] Medical - Laboratory: [address] [place] High non-HDL Cholesterol (Calculated) 165 mg/dL 0-160 mg/dL Final [facility] Medical - Laboratory: [address] [place] High Cholesterol 211 mg/dL 0-200 mg/dL [facility] Medical - Laboratory: [address] [place] LDL (Calculated) 120 mg/dL 0-130 mg/ dL Final [facility] Medical - Laboratory: [address] Abad 08/18/2018 CBC W/ Auto Diff Wbc 7.10 x10*3/L 3.9 8-10.04 x10*3/L Final [facility] Medical - Laboratory: [address] [place] Rbc 4.77 10*12/L 3.93-5.22 10*12/L Final [facility] Medical - Laboratory: [address] [place] Hemoglobin 14.60 g/dL 11.20-15.70 g/ dL Final [facility] Medical - Laboratory: [address] [place] Hematocrit 44.5 % 34.1-44.9 % Final [facility] Medical - Laboratory: [address] [place] Mcv 93.3 fL 80.0-100.0 fL Final [facility] Medical - Laboratory: [address] [place] Mch 30.6 pg 25.6-32.2 pg Final [facility] Medical - Laboratory: [address] [place] Mchc 32.8 g/dL 32.2-35.5 g/dL Final [facility] Medical - Laboratory: [address] [place] RDW-SD 45.5 fL 36.4-46.3 fL Final [facility] Medical - Laboratory: [address] [place] Platelet Count 273.0 k/uL 182.0-369. 0 k/uL Final [facility] - Laboratory: [address] [facility] Mpv 10.8 fL 7.5-11.5 fL Final [facility] Medical - Laboratory: [address] [place] Neut% 43.4 % 34.0-71.1 % Final [facility] Medical - Laboratory: [address] [place] Lymph% 49.0 % 19.3-51.7 % Final [facility] Medical - Laboratory: [address] [place] Low Mon% 4.4 % 4.7-12.5 % Final [facility] Medical - Laboratory: [address] [place] Eos% 2.5 % 0.7-5.8 % Final [facility] Medical - Laboratory: [address] [place] Baso% 0.7 % 0.1-1.2 % Final [facility] Medical - Laboratory: [address] [place] Neut# 3.1 x10*3/L 1.6-6.1 x10*3/L Final [facility] Medical - Laboratory: [address] [place] Lymph# 3.5 x10*3/L 1.2-3.7 x10*3/L Final [facility] Medical - Laboratory: [address] [place] Mon# 0.3 x10*3/L 0.2-0.9 x10*3/L [facility]: [address] [place] Eos# 0.18 x10*3/L 0.04-0.36 x10*3/ L Final [facility] Medical - Laboratory: [address] [place] Baso# 0.05 x10*3/L 0.01-0.08 x10*3/ L Final [facility] Medical - Laboratory: [address] [place] 08/18/2018 CMP, Serum or Plasma Alt 23 U/L 0-55 U /L Final [facility] Medical - Laboratory: [address] [place] Ast 21 U/L 5-34 U/L Final [facility] Medical - Laboratory: [address] [place] Bun 16.4 mg/dL 9.8-20.1 mg/dL Final [facility] Medical - Laboratory: [address] [place] Alk Phos 82 unit/L 40-150 unit/L [facility] Medical - Laboratory: [address], [place] Glucose 87 mg/dL 70-99 mg/dL [facility] Medical - Laboratory: [address] [facility] [place] Albumin 4.5 g/dL 3.5-5.0 g/dL [facility] Medical - Laboratory: [address], [place] Creatinine 0.84 mg/dL 0.57-1.11 mg/d L [facility] Medical - Laboratory: [address] [facility], [place] eGFR Non- >60 mL/mi n/1.73m2 [facility] Medical - Laboratory: [address], [place] Total Bilirubin 0.3 mg/dL 0.2-1.2 mg /dL [facility] Medical - Laboratory: [address] [place] eGFR - >60 mL/min/1 .73m2 [facility] Medical - Laboratory: [address], [place] Sodium 141 mEq/L 136-145 mEq/L [facility] Medical - Laboratory: [address] [place] [address] Potassium 4.0 mEq/L 3.5-5.1 mEq/L [facility] - Laboratory: [address] [facility] Chloride 102 mmol/L 98-107 mmol/L [facility] Medical - Laboratory: [address], [place] Total Protein 7.8 g/dL 6.4-8.3 g/dL [facility] Medical - Laboratory: [address], [place] High Calcium 10.7 mg/dL 8.6-10.4 mg/dL [facility] Medical - Laboratory: [address], [place] Co2 26.5 mmol/L 22.0-29.0 mmol/L [facility] Medical - Laboratory: [address], [place] Anion Gap 13 calc [facility] Medical - Laboratory: [address] [place] 08/18/2018 Lipid Panel, Serum Hdl 51 mg/dL 40-60 mg/dL [facility] Medical - Laboratory: [address], [place] Triglyceride 134 mg/dL 0-149 mg/dL [facility] - [facility]: [address] [place] [address], [place] VLDL Calc. 27 mg/dL Final Vi [facility] Medical - Laboratory: [address] [place] [address], [place] cholesterol/HDL Ratio 3.9 mg/dL Final [facility] Medical - Laboratory: [address] [place] [address], [place] non-HDL Cholesterol Calc. 146 mg/dL 0-160 mg/dL Final [facility] Medical - Laboratory: [address] [place] [address], [place] Cholesterol 197 mg/dL 0-199 mg/dL Fi nal [facility] Medical - Laboratory: [address] [place] [address], [place] LDL Calc. 119 mg/dL 0-130 mg/dL Debbie l [facility] Medical - Laboratory: [address] [place] [address], [place] 08/18/2018 Vitamin D, 25-Hydroxy, Total, Serum Vitamin D 25OH 35.8 NG/mL 30.0-96.0 NG/mL Final [facility] Medical - [place]: [address] [place] [address], [place] Allergies Code Code System Name Reaction Severity Status Onset 98093 RxNorm Lisinopril Photosensitivity Active Problems Name Status Onset Date Source Hyperlipidemia Active 08/18/2018 Depressive Disorder Active 08/18/2018 Hypertensive Disorder Active 08/18/2018 Psoriasis Active 08/18/2018 Procedures Date Name Performed by 05/03/2017 Lumbar Spinal Fusion Information not agnieszka ilable 05/03/1997 Tubal Ligation Information not avai lable 05/03/1986 Repair of Flexor Tendon of Hand Informat ion not available Colonoscopy with Biopsy Information not available Surgical Procedure on Cervical Spine Inf ormation not available Vaccine List None recorded. Social History Tobacco Smoking Status Former Smoker (1/2 PPD) Past Encounters 03/23/2019 Tao Pettit MD: [address] [place] [address], Ph. 12/29/2018 Body Mass Index 30+ - Obesity; Morbid Obesity; Cholelithiasis without Obstruction; Hypercalcemia; Essential Hypertension; Abdominal Pain Tao Pettit MD: [address] [place] [address], Ph. 12/26/2018 Hypertensive Disorder; Body Mass Index 30+ - Obesity; Abdominal Pain; Gastroesophageal Reflux Disease; Hypercalcemia; Essential Hypertension; Depressive Disorder; Chronic Low Back Pain Tao Pettit MD: [address] [place] [phone], Ph. 11/21/2018 Hypercalcemia Tao Pettit MD: [address] [place] [phone], Ph. 11/14/2018 Body Mass Index 30+ - Obesity; Obesity; Depressive Disorder; Hypertensive Disorder; Hyperlipidemia Tao Pettit MD: [address] [place] [phone], Ph. 09/05/2018 Arthritis of Right Sacroiliac Joint; Body Mass Index 30+ - Obesity; Screening for Disorder; Screening for Malignant Neoplasm of Cervix Camron Esperanza Arias MD: [address] [place] [phone], Ph. 08/18/2018 Body Mass Index 30+ - Obesity; Depressive Disorder; Hyperlipidemia; Hypertensive Disorder; Alcohol Consumption Screening; Immunization Refused; Vitamin D Deficiency Tao Pettit MD: [address] [place] [phone], Ph. History of Present Illness Hypertension Reported By: Patient Hyperlipidemia Reported By: Patient Note:f/u htn/hld/depression/vit-d deficiency ,compliant with meds diet exercise somewhat<div>denies feelings of depression/suicidal/homicidal thoughts</div> Review of Systems:ROS as noted in the HPI Review of Systems None recorded. Physical Exam Cardiology Exam Reported By: Patient Constitutional: General Appearance: well-dev eloped, appears stated age, obese. Level of Distress: comfortable Psychiatric: Mental Status: alert, normal affect. Orientation: oriented to time, place, and person. Insight: good judgment Eyes: Lids and Conjunctivae: non-i njected, anicteric, no discharge, no pallor, no arcus senilis, no xanthelasma. Pupils: PERRLA Neck: Neck: supple, trachea midlin e, no masses, FROM. Carotid Arteries: bilateral normal upstroke, no bruits, no thrills. Cervical Lymph Nodes: non tender, not enlarged. Thyroid: not enlarged, non tender, no nodules Lungs: Respiratory Effort: unlabore d. Chest Exam: normal curvature, no thoracic deformity, no chest wall tenderness. Percussion: resonant. Auscultation: clear, no wheezing, no rales, no rhonchi Cardiovascular: Precordial Exam: non displac ed focal PMI, no heaves, no precordial thrills. Rate And Rhythm: regular. Heart Sounds: normal S1, physiologically split S2, no rub, no gallop, no click. Systolic Murmur: not heard. Diastolic Murmur: not heard. Extremities: no cyanosis, no edema, no peripheral signs of emboli Skin: Inspection and Palpation: wa rm and dry. Nails: no clubbing
--- OUTSIDE RECORDS SUMMARY | 2019-09-11 20:06 | XMS REPORT | Encounter Summary ---
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 Camron Calvillo 3 [phone] [facility] 107 [phone] Hans Eaton MD 124 [phone] Reason for Visit other - see typed reason Instructions None recorded. Discussion Note: None recorded. Patient educational handouts: No information available. Plan of Care Reminders Provider Appointments Est Patient 04/24/2019 9:00AM Lyudmila armenta MD Lab None recorded. Referral None recorded. Procedures None recorded. Surgeries None recorded. Imaging None recorded. Medications Name Start Date acetaminophen 300 mg-codeine 60 mg table t [...] TABLET DAILY potassium chloride ER 20 mEq tablet,exte nded release(part/cryst) Take 1 tablet every day by oral route. PreserVision AREDS QD simvastatin 10 mg tablet TAKE 1 TABLET DAILY Medications Administered None recorded. Vitals Height Weight Blood Pressure 5 ft 4 in Results Lab Results None recorded. Allergies Code Code System Name Reaction Severity Status Onset 98570 RxNorm Lisinopril Photosensitivity Active Problems Name Status [...] Past Encounters 03/23/2019 Tao Pettit MD: [address] [place] [address], Ph. History of Present Illness None recorded. Review of Systems None recorded. Physical Exam None recorded.
--- NOTE | 2019-09-11 21:05 | Emergency Department Note ---
History of Present Illnes History of Present Illness Chief Complaint: rgt achilles pain Stated Complaint: PAIN,RIGHT FOOT, BACK OF ANKLE History of Present Illness This is a 58 year old female . was doing well prior to this. Historian: Patient Onset (how long ago): day(s) (2) Location: rgt achilles area Quality: sharp Radiation: non-radiation Severity: moderate Onset quality: gradual Duration (how long): day(s) (2) Timing of current episode: intermittent Progression: unchanged Chronicity: new Context: other (while walking) Relieving factors: rest Exacerbating factors: movement Associated symptoms: denies other symptoms Treatments prior to arrival: none Past Medical/Family History Physician Review I have reviewed the patient's past medical and family history. Any updates have been documented here. Past Medical History Recent Fever: No Clinical Suspicion of Infectio: No New/Unexplained Change in Ment: No Past Medical History: None Past Surgical History: None Social History Smoking Cessation: Never Smoker Counseling Performed: No Alcohol Use: None Any Illegal Drug Use: No TB Exposure/Symptoms: No Physically hurt or threatened: No Family History Family history of heart diseas: No Review of Systems Review of Systems Constitutional: no symptoms EENTM: no symptoms Cardiovascular: no symptoms Gastointestinal/Abdominal: no symptoms Genitourinary: no symptoms Musculoskeletal: as per HPI, other (rgt achilles pain) Integumentary: no symptoms Neurological: no symptoms Psychological: no symptoms Endocrine: no symptoms Hematological/Lymphatic: no symptoms Review of other systems All other systems reviewed and negative. Physical Exam Related Data Allergies: Coded Allergies: lisinopril (Verified Allergy, Severe, RASH, REDDENED SKIN, 01/25/19) Physical Exam CONSTITUTIONAL Constitutional: well-developed, well-nourished HENT HENT: normocephalic, atraumatic, oropharynx clear/moist, nose normal HENT - Ear: left ext ear normal, right ext ear normal EYES Eyes: PERRL, conjunctivae normal NECK Neck: ROM normal PULMONARY Pulmonary: effort normal, breath sounds normal CARDIOVASCULAR Cardiovascular: regular rhythm, heart sounds normal, capillary refill normal, normal rate GASTROINTESTINAL Abdominal: soft, nontender, bowel sounds normal GENITOURINARY Genitourinary: exam deferred SKIN Skin: warm, dry MUSCULOSKELETAL Musculoskeletal: ROM normal, tenderness (over rgt achilles), other (negative abraham test) NEUROLOGICAL Neurological: alert, oriented x 3, no gross motor or sensory deficits PSYCHOLOGICAL Psychiatric/behavioral: mood/affect normal, judgement normal Critical Care Time Subsequent provider I assumed direction of critical care for this patient from another provider of my specialty. Assessment & Plan Assessment & Plan Problems: (1) Achilles tendinitis Assessment & Plan rest, stretch, aqua therapy, follow up with ortho Depart Disposition: HOME, SELF-longterm Meds Reported Medications Hydrochlorothiazide (HYDROCHLOROTHIAZIDE) 25 Mg Tablet, 25 MG PO DAILY, #30 TAB 01/26/19 Lactobac Cmb #3/Fos/Pantethine (PROBIOTIC & ACIDOPHILUS CAP) 1 Each Capsule, 1 TAB PO DAILY 01/25/19 Omeprazole Magnesium (PRILOSEC) 10 Mg Suspdr.pkt, 40 MG PO DAILY 01/25/19 Beta Carotene (PRESERVISION TABLET) 1 Each Tab, 1 TAB PO DAILY 01/25/19 Simvastatin (ZOCOR) 20 Mg Tablet, 10 MG PO HS, #30 TAB 01/25/19 Citalopram Hydrobromide (CELEXA) 40 Mg Tablet, 40 MG PO DAILY 01/25/19 NIKA GAMBINO September 11, 2019 21:05
== END 2019-09-11 21:05 | disposition home or self-care (01) ==
LOC: FSED 20:02
DX: M25.571 Pain in right ankle and joints of right foot (principal); M76.61 Achilles tendinitis, right leg; I10 Essential (primary) hypertension; E78.5 Hyperlipidemia, unspecified; F41.9 Anxiety disorder, unspecified; K21.9 Gastro-esophageal reflux disease without esophagitis
CPT/HCPCS: 99282

== ENCOUNTER → 2019-09-18 | Outpatient (CLI) | payer OTHER ==
[~2019-09-18] MED LIST changes: +IOPAMIDOL 370 MG/ML 200 ML INFUS..BTL INJ ONE; +SODIUM CHLORIDE 0.9% 500ML 500 ML ONE; +SODIUM CHLORIDE 0.9% 50ML 50 ML ONE
[2019-09-18 09:28] LABS: CREATININE, SERUM 1.12 mg/dL (0.57-1.11)
--- NOTE | 2019-09-18 11:42 | Diagnostic Imaging Report ---
CT of the abdomen and pelvis, with contrast, 09/18/2019. History: Upper abdominal pain. Comparison: None available. Technique: Multidetector CT scanning of the abdomen and pelvis was performed from the level of the lung bases to the inferior pubic rami after intravenous administration of contrast. Coronal and sagittal multiplanar reformations were obtained. RADIATION DOSE: Total DLP: 745 mGy*cm Dose modulation, iterative reconstruction, and/or weight based adjustment of the mA/kV was utilized to reduce the radiation dose to as low as reasonably achievable. Discussion: LUNG BASES: No visualized abnormalities. ABDOMEN: The liver is enlarged measuring over 18 cm in length. There is diffuse low-density of the liver with focal fatty sparing adjacent to the gallbladder. Multiple stones are present within the neck of the gallbladder without evidence of gallbladder wall thickening. The biliary tree, spleen, pancreas, adrenal glands, and kidneys are normal. The hepatic vein, portal vein, and splenic vein are patent. The abdominal aorta is within normal limits for size. A small hiatal hernia is present. There is no bowel dilatation. The appendix is visualized and is normal. There is no evidence of adenopathy or free fluid. Small fat-containing umbilical hernia is present. PELVIS: The bladder, uterus, and adnexa are unremarkable. There is no evidence of free fluid or adenopathy. BONES AND SOFT TISSUES: No acute abnormality. Spinal stimulator device is noted. Right sacral screws are noted. IMPRESSION: 1. Small hiatal hernia. 2. Hepatomegaly with diffuse fatty infiltration of the liver. Correlate with LFTs. 3. Cholelithiasis. Signed by: Marky Virgen on 09/18/2019 11:39 AM
== END ==
LOC: CT 08:26
PROVIDERS: ATTEND Internal Medicine Gastroenterology
DX: R10.10 Upper abdominal pain, unspecified (principal)
CPT/HCPCS: 36415; 74177; 82565; 84520

== ENCOUNTER → 2019-10-04 | Outpatient (CLI) | payer OTHER ==
[~2019-10-04] MED LIST changes: -IOPAMIDOL 370 MG/ML 200 ML INFUS..BTL INJ ONE; -SODIUM CHLORIDE 0.9% 500ML 500 ML ONE; -SODIUM CHLORIDE 0.9% 50ML 50 ML ONE
--- NOTE | 2019-10-04 19:20 | Diagnostic Imaging Report ---
Hepatobiliary Scan with Gallbladder Ejection Fraction Clinical information: RUQ abdominal pain Report: Following intravenous administration of 6.6 millicuries of Tc-99m mebrofenin, dynamic images of the abdomen in the anterior projection were obtained through 60 minutes. Sincalide (CCK analog) 1.9 micrograms was administered intravenously over 30 minutes with additional imaging for determination of gallbladder ejection fraction. Perfusion to the liver is normal. Extraction of tracer from the blood pool by the liver parenchyma is normal. Tracer is seen promptly within the biliary tract. The gallbladder begins to fill by 10 minutes post-injection of tracer and fills adequately. Tracer is seen in the small bowel by 12 minutes. The gallbladder ejection fraction with administration of sincalide is 64% (normal greater than 40%). Impression: 1. Filling of the gallbladder excludes the diagnosis of acute cystic duct obstruction/acute cholecystitis. 2. Normal gallbladder ejection fraction of 64% does not support the clinical diagnosis of chronic cholecystitis/gallbladder dyskinesia. Signed by: Dr. Macy Petersen M.D. on 10/04/2019 7:17 PM
== END ==
LOC: NM 08:55
PROVIDERS: ATTEND Internal Medicine Gastroenterology
DX: R10.11 Right upper quadrant pain (principal)
CPT/HCPCS: 78227; A9537

== ENCOUNTER → 2020-09-16 | Day surgery (SDC) | payer OTHER ==
[~2020-09-16] MED LIST changes: +AMLODIPINE BESYL5 MG PO; +ATORVASTATIN CA10 MG PO; +CYCLOBENZAPRINE10 MG PO; +DEXAMETHASONE SOD PHOS INJ 4 MG/ML VIAL ONE; +DICYCLOMINE HCL20 MG PO; +FAMOTIDINE20 MG PO; +HYOSCYAMINE SULFATE 0.5 MG/ML INJ ONE; +METOCLOPRAMIDE HCL 10 MG/2ML VIAL ONE; +METOPROLOL TART50 MG PO; +MONTELUKAST SOD10 MG PO; +ONDANSETRON HCL INJ 2MG/ML 2ML 2 MG/ML VIAL ONE; +POTASSIUM PO; +POVIDONE IODINE 0.05% 0.05 % ML PO ONE; +PROPOFOL IV EMULSION 10 MG/ML 20 ML VIAL ONE
[2020-09-16 15:30] VITALS: BP 138/87
== END | disposition home or self-care (01) ==
LOC: OR 10:34
PROVIDERS: ATTEND Internal Medicine Gastroenterology
DX: K62.5 Hemorrhage of anus and rectum (principal); K63.5 Polyp of colon; K62.1 Rectal polyp; K64.8 Other hemorrhoids; K29.70 Gastritis, unspecified, without bleeding; I10 Essential (primary) hypertension; Z88.8 Allergy status to other drugs, medicaments and biological substances; Z01.810 Encounter for preprocedural cardiovascular examination; Z01.812 Encounter for preprocedural laboratory examination; Z20.822 Contact with and (suspected) exposure to COVID-19; Z80.0 Family history of malignant neoplasm of digestive organs
CPT/HCPCS: 45385; 93005; J1100; J1980; J2405; J2704; J2765; U0002; 45378

== ENCOUNTER 2021-04-19 12:11 | Emergency (ER) | payer OTHER ==
[~2021-04-19] VITALS: Ht 160 cm; Wt 90.7 kg
[~2021-04-19 12:11] MED LIST changes: -DEXAMETHASONE SOD PHOS INJ 4 MG/ML VIAL ONE; -HYOSCYAMINE SULFATE 0.5 MG/ML INJ ONE; -METOCLOPRAMIDE HCL 10 MG/2ML VIAL ONE; -ONDANSETRON HCL INJ 2MG/ML 2ML 2 MG/ML VIAL ONE; -POVIDONE IODINE 0.05% 0.05 % ML PO ONE; -PROPOFOL IV EMULSION 10 MG/ML 20 ML VIAL ONE
[2021-04-19] MEDS ORDERED: MEDROL4 MG PO (15:18)
== END 2021-04-19 15:45 | disposition home or self-care (01) ==
LOC: FSED 12:54
DX: M17.11 Unilateral primary osteoarthritis, right knee (principal); I10 Essential (primary) hypertension; E78.5 Hyperlipidemia, unspecified; F32.A Depression, unspecified
CPT/HCPCS: 99283